=== PATIENT | female | born 1970 | race Caucasian/White ===

== ENCOUNTER 2016-12-02 21:28 | Emergency (ER) | payer BC ==
[~2016-12-02] VITALS: Ht 154.9 cm; Wt 113.8 kg
--- NOTE | ~2016-12-02 | EKG ---
[facility] [place] [address] ELECTROCARDIOGRAM REPORT Name: DARLIN ELMORE [facility] [id number] Admission: 12/02/16 Attend Phys: Discharge: 12/02/16 Date of : 72 Report #: [id number] THIS REPORT FOR: //name// 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1970 Requested By: Brandi Oh Order Number: [id number] MD: Delvis Collins Measurements Intervals [place] Rate: 87 P: 37 IN: 149 QRS: -57 QRSD: 95 T: 24 QT: 378 QTc: 455 Interpretive Statements Sinus rhythm Left anterior fascicular block Abnormal R-wave progression, late transition Compared to ECG 04/01/2015 14:10:27 no significant change was found Electronically Signed On 12-03-2016 9:24:27 CDT by Delvis Collins [email or web address] <ELECTRONICALLY SIGNED> By: Delvis Collins MD, [facility] 12/03/16 0924 32 32 Delvis Collins MD, [facility] /EPI
[~2016-12-02 21:28] MED LIST: ALBUTEROL INH; ALBUTEROL NEB; ALBUTEROL2.5 MG/31 IH; ALEVE220 MG PO; AMBIEN 10 MG TA10 MG PO; AMBIEN 5 MG TABL5 M1; BACTRIM DS TAB1 EACH PO; CIPROFLOXACIN500 M1 PO; CLEOCIN HCL150 MG PO; CLEOCIN HCL300 MG PO; COLACE100 MG PO; DARVOCET-N 1001 EACH PO; DEMEROL50 MG PO; DOXYCYCLINE 10100 M1; DOXYCYCLINE 10100 MG PO; FLEXERIL PO; FLONASE 0.05%50 MCG NASAL; IBUPROFEN 200200 M1 PO; IBUPROFEN 600600 M1 PO; IBUPROFEN 800800 MG PO; LEVAQUIN 500 M500 M2 PO; LEVAQUIN 500 M500 MG PO; LEVOFLOXACIN PO; NOHOMEMEDICATIONS; NORCO 5-325 TA1 EACH PO; PENICILLIN VK500 M1 PO; PREDNISONE 20 M20 MG PO; PREDNISONE50 MG PO; PRILOSEC 20 MG20 MG PO; PYRIDIUM200 MG PO; TESSALON PERLE100 MG PO; ULTRAM 50MG TAB50 MG PO; VENTOLIN HFA 1818 GM INH; ZOFRAN4 MG PO; ZPAK PO
[2016-12-02 21:52] LABS: ABSOLUTE NEUTROPHILS 5.4 thou/uL (1.4-8.2); BASOPHILS 0.5 % (0.0-2.0); EOSINOPHILS 2.7 % (0.0-3.0); HEMATOCRIT 40.8 % (37.0-47.0); LYMPHOCYTES 33.3 % (24.0-44.0); MCH 31.1 pg (26.0-34.0); MCHC 34.4 g/dL (28.0-37.0); MCV 90.3 fL (80.0-100.0); MONOCYTES 7.4 % (1.0-8.0); PLATELET COUNT 235 thou/uL (150-400); POLYS 56.1 % (36.0-66.0); RBC 4.51 mil/uL (4.20-5.00); RDW 14.2 % (10.5-14.5); WBC 9.6 thou/uL (4.0-11.0)
[2016-12-02 21:55] LABS: MANUAL DIFF NO
[2016-12-02 22:06] LABS: APTT 27.9 Seconds (24.5-32.8); PROTIME 10.4 Seconds (9.3-11.4)
[2016-12-02 22:09] LABS: ANION GAP 8 mmol/L (7-16); BUN 8 mg/dL (7-18); CALCIUM 8.6 mg/dL (8.5-10.1); CHLORIDE 107 mmol/L (98-107); CO2 27 mmol/L (21-32); CREATININE 0.7 mg/dL (0.6-1.0); GLUCOSE 111 mg/dL (74-106); SODIUM 142 mmol/L (136-145)
[2016-12-02 22:15] LABS: ALBUMIN 3.6 g/dL (3.4-5.0); ALKALINE PHOSPHATASE 82 U/L (46-116); NT-PRO BRAIN NAT PEPTIDE 48 pg/mL (<300); SGOT 19 U/L (15-37); SGPT 30 U/L (30-65); TOTAL BILIRUBIN 0.2 mg/dL (<0.1-1.0); TROPONIN-I < 0.04 ng/mL (<0.04-0.07)
[2016-12-02 22:28] VITALS: BP 132/91
[2016-12-02] MEDS ORDERED: DOXYCYCLINE 10100 MG PO (22:29)
== END 2016-12-02 22:38 | disposition home or self-care (01) ==
LOC: ER 21:28
PROVIDERS: Emergency Medicine
DX: J18.8 Other pneumonia, unspecified organism (principal); J45.901 Unspecified asthma with (acute) exacerbation; Z90.710 Acquired absence of both cervix and uterus; Z90.49 Acquired absence of other specified parts of digestive tract; J44.9 Chronic obstructive pulmonary disease, unspecified; Z88.1 Allergy status to other antibiotic agents; Z88.0 Allergy status to penicillin; F17.210 Nicotine dependence, cigarettes, uncomplicated

== ENCOUNTER 2017-02-13 14:28 | Emergency (ER) | payer BC, OTHER ==
[2017-02-13 14:31] VITALS: BP 130/89
== END 2017-02-13 14:54 | disposition home or self-care (01) ==
LOC: ER 14:28
DX: Z53.21 Procedure and treatment not carried out due to patient leaving prior to being seen by health care provider (principal)

== ENCOUNTER 2018-09-24 00:40 | Emergency (ER) | payer BC ==
[~2018-09-24] VITALS: Ht 154.9 cm; Wt 113.4 kg
[~2018-09-24 00:40] MED LIST changes: +DUONEB 2.5-0.5 M3 ML; +PREDNISONE50 MG
[2018-09-24 00:48] VITALS: BP 141/96
--- NOTE | 2018-09-24 09:38 | EKG ---
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 09/24/18 0938 0111 0 Delvis Collins MD, FACC /EPI
== END 2018-09-24 01:59 | disposition home or self-care (01) ==
LOC: ER 00:40
DX: M79.602 Pain in left arm (principal); F17.210 Nicotine dependence, cigarettes, uncomplicated; J44.9 Chronic obstructive pulmonary disease, unspecified; M19.90 Unspecified osteoarthritis, unspecified site; Z88.1 Allergy status to other antibiotic agents; Z88.0 Allergy status to penicillin; Z90.710 Acquired absence of both cervix and uterus; Z90.49 Acquired absence of other specified parts of digestive tract

== ENCOUNTER 2021-05-27 00:54 | Emergency (ER) | payer BC ==
[~2021-05-27] VITALS: Ht 154.9 cm; Wt 132.4 kg
[2021-05-27] MEDS ORDERED: ARFORMOTER15 MCG/2 M INH (01:16)
[2021-05-27] MEDS ORDERED: BUDESONIDE0.25 MG/2 INH (01:16)
[2021-05-27] MEDS ORDERED: IPRAT-ALBUT 0.5-3 ML INH (01:17)
[2021-05-27] MEDS ORDERED: GARAMYCIN5 ML OPHTHALMIC (01:19)
[2021-05-27 02:54] LABS: ABSOLUTE NEUTROPHILS 5.4 thou/uL (1.4-8.2); BASOPHILS 0.8 % (0.0-2.0); EOSINOPHILS 2.2 % (0.0-3.0); HEMATOCRIT 42.8 % (37.0-47.0); HEMOGLOBIN 14.1 gm/dL (12.0-15.0); MCH 30.6 pg (26.0-34.0); MCHC 33.1 g/dL (28.0-37.0); MCV 92.6 fL (80.0-100.0); MONOCYTES 10.2 % (1.0-8.0); PLATELET COUNT 244 thou/uL (150-400); POLYS 61.8 % (36.0-66.0); RBC 4.62 mil/uL (4.20-5.00); RDW 14.2 % (10.5-14.5); WBC 8.7 thou/uL (4.0-11.0)
[2021-05-27 02:55] LABS: URINE BILIRUBIN NEGATIVE (Negative); URINE BLOOD TRACE (Negative); URINE CLARITY CLEAR; URINE COLOR YELLOW; URINE GLUCOSE-RANDOM* NEGATIVE (Negative); URINE KETONES NEGATIVE (Negative); URINE LEUKOCYTES-REFLEX NEGATIVE (Negative); URINE NITRITE-REFLEX NEGATIVE (Negative); URINE PROTEIN (DIPSTICK) NEGATIVE (Negative); URINE SPECIFIC GRAVITY <= 1.005 (1.005-1.035); URINE UROBILINOGEN 0.2 E.U./dl (0.2-1.0)
[2021-05-27 03:00] LABS: CALCIUM 8.5 mg/dL (8.5-10.1); CREATININE 0.9 mg/dL (0.6-1.0); POTASSIUM 4.1 mmol/L (3.5-5.1)
[2021-05-27 04:05] VITALS: BP 142/95
== END 2021-05-27 04:10 | disposition home or self-care (01) ==
LOC: ER 00:54
PROVIDERS: Emergency Medicine
DX: B34.9 Viral infection, unspecified (principal); J45.909 Unspecified asthma, uncomplicated; J44.9 Chronic obstructive pulmonary disease, unspecified; M19.90 Unspecified osteoarthritis, unspecified site; F17.210 Nicotine dependence, cigarettes, uncomplicated; Z90.49 Acquired absence of other specified parts of digestive tract; Z90.710 Acquired absence of both cervix and uterus; Z79.899 Other long term (current) drug therapy; Z88.0 Allergy status to penicillin; Z88.1 Allergy status to other antibiotic agents